=== PATIENT | male | born 1980 | race Caucasian/White ===

== ENCOUNTER 2024-10-08 08:05 | Outpatient (REF) | payer OTHER, SELFPAY ==
--- OUTSIDE RECORDS SUMMARY | 2024-10-08 08:10 | XMS_ITS | Patient Health Record ---
Author Organization [facility] Address [address] [place] [address] [address] [place] [address] Care Team Providers Care Platform Beater Name Role Phone ADONAY CARL Primary Care Provider Allergies Allergen (clinical drug ingredient) Drug/Non Drug Allergy documented on EMR Reaction Allergy Type Onset Date Status Bee Sting Unknown Allergy Active semaglutide Wegovy nausea and vomiting Drug Allergy Active Reason For Referral No Information Medications Medication SIG (Take, Route, Frequency, Duration) Notes Start Date End Date Status Zepbound 2.5 MG/0.5ML 2.5 mg Subcutaneou s weekly; Duration: 30 days 06/06/2024 Active Qsymia 7.5-46 MG 1 capsule Orally Onc e a day; Duration: 30 days 04/26/2023 Not-Takin g Qsymia 3.75-23 MG 1 capsule Orally Onc e a day; Duration: 14 days 04/26/2023 Not-Takin g Phentermine HCl 37.5 MG 1 capsule Orally Once a day; Duration: 30 days 07/05/2024 Active Naproxen Not-Taking Topamax 50 MG 1 tablet Orally twic e a day; Duration: 30 days 05/15/2023 Not-Takin g Lactulose 20 GM/30ML 15 mL as needed Ora lly Once a day; Duration: 30 days 01/04/2024 Active Polyethylene Glycol 3350 17 GM 1 packet mixed with 8 ounces of fluid Orally Once a day; Duration: 30 days 10/14/2022 Not-Taking Topiramate 25 MG 1 tablet Orally Twic e a day; Duration: 30 day(s) Not-Jordon ing Ondansetron HCl 4 MG 1 tablet Orally Onc e a day; Duration: 30 days 05/23/2022 Active Immunizations Vaccine Route Administration Date Status Comme nts COVID 19 Pfizer Unknown 07/03/2020 Administered COVID 19 Pfizer Unknown 07/23/2020 Administered Hep B, adult dosage, for intramuscular use Unknown 06/24/2011 Administered Tdap Unknown 06/20/2011 Administered Social History Tobacco Use: Social History Observation Description Date Details (start date - stop date) Never Smoker NA - NA Tobacco Use/Smoking Question Answer Notes Are you a nonsmoker Alcohol Screen (Audit-C) Question Answer Notes Did you have a drink contain ing alcohol in the past year? Yes How often did you have a dri nk containing alcohol in the past year? Monthly or less (1 point) How many drinks did you have on a typical day when you were drinking in the past year? 1 or 2 drinks (0 point) Points 1 Interpretation Negative Problems Problem Type SNOMED Code ICD Code Onset Dates Problem Status W/U Status Risk Notes Problem Morbid obesity (disorder) (007609425) Morbid (severe) obesity due to excess calories (E66.01) Active confirmed Problem Obesity due to excess calories (508635312) Other obesity due to excess calories (E66.09) Active confirmed Problem Constipation (15343410) Constipation, unspecified (K59.00) Active confirmed Problem Degeneration of thoracolumbar intervertebral disc (44195265) Other intervertebral disc degeneration, thoracolumbar region (M51.35) Active confirmed Vital Signs Heart Rate 80 /min 08/28/2024 Temperature 97.6 degrees Fahrenheit 08/28/2024 Blood pressure diastolic 74 mm Hg 08/28/2024 Oximetry 96 % 08/28/2024 Height 66 in 08/28/2024 Blood pressure systolic 130 mm Hg 08/28/2024 Weight 241.7 lbs 08/28/2024 BMI 39.01 kg/m2 08/28/2024 Encounters Encounter Location Date Provider Diagnosis [address] [place] [address] 10/17/2023 SIDDHARTHA URIAS Other obesity due to excess calories E66.09 and Dietary counseling and surveillance Z71.[address] [place] [address] 01/04/2024 CARL GUL Other obesity due to excess calories E66.09 ; Dietary counseling and surveillance Z71.3 and Constipation, unspecified K59.00 [facility] [address] [place] [address] 03/07/2024 CARL GUL Other obesity due to excess calories E66.09 and Dietary counseling and surveillance Z71.3 [facility] [address] [place] [address] 04/11/2024 CARL GUL Other obesity due to excess calories E66.09 and Dietary counseling and surveillance Z71.3 [facility] [address] [place] [address] 06/06/2024 CARL GUL Other obesity due to excess calories E66.09 and Dietary counseling and surveillance Z71.3 [facility] [address] [place] [address] 08/28/2024 CARL GUL Morbid (severe) obesity due to excess calories E66.01 and Dietary counseling and surveillance Z71.3 [facility] [address] [place] [address] 12/11/2023 [facility] [address] [place] [address] 12/18/2023 [facility] [address] [place] [address] 06/06/2024 CARL GUL Other obesity due to excess calories E66.09 [facility] [address] [place] [address] 07/05/2024 [facility] [address] [place] [address] 08/06/2024 CARL [facility] [address] [place] [address] 09/25/2024 [facility] [address] [place] [address] 10/04/2024 [facility] [address] [place] [address] 11/27/2023 [facility] [address] [place] [address] 12/28/2023 [facility] [address] [place] [address] 01/30/2024 [facility] [address] [place] [address] 01/30/2024 [facility] [address] [place] [address] 04/18/2024 [facility] [address] [place] [address] 06/26/2024 [facility] [address] [place] [address] 06/29/[address] [place] [address] 07/05/[address] [place] [address] 08/14/[address] [place] [address] 10/04/[address] [place] [address] 10/04/2024 [facility] Assessments Encounter Date Diagnosis (ICD Code) Assessment Notes Treatment Notes Treatment Clinical Notes Section Notes 10/17/2023 Other obesity due to excess calories (ICD-10 - E66.09) Melchor is a 43 year old gentleman with ADD and generalized anxiety disorder here for medical weight management. We saw him in August. He lost 49 lbs in total and 7.5 lbs since last time. He is not exercising because of sprained low back. Advised to consume not more than 1300 calories in 24 hours. Advised to get a food scale and measure portions. He is walking as much as he can and advised cardio exercises. Plan is as follows: Dietary recommendations. Food recall was done today and patient advised to be on low calorie, low carbohydrate diet. Restrict calories to less than 1500 kcal in 24 hours. Low glycemic index foods and encouraged. Meal replacements were recommended. Advised to use djkg-itm-tbgykhi multivitamins and vitamin D. Advised to use calorie counter and adhere to portion control. Monthly goal is to lose 4-6 pounds Pharmacotherapy. He is off Wegovy 2.4 MG/0.75ML at this point because he cannot tolerate side effects of nausea plan increase Phentermine 37.5 MG OD and Topamax 50 MG BID. Side effects discussed. Exercise. Patient encouraged to increase frequency, intensity and duration of exercise. Encouraged to burn at least 250-500 kcal in one session. Also encouraged to do weight training Assess. Different risk factors discussed with the patient and addressed Advise. Patient was given clear And specific advise that she will comply with Low-calorie diet and try not to exceed more than 1300 kcal in 24 hours. Agree. Mutually agreed to work together to achieve appropriate goals Assist. Motivational interviewing done. Arrange. Follow-up appointment arranged. Counseling. 15 minutes spent Face to face with the patient more than 50% of time was spent counseling. General health concerns discussed with patient. Scribe services used to formulate this note under HIPAA compliance and under [place] law mandated for scribe services. Patient aware of service. Verbal consent and written consent taken from the patient. Patient understands and verbalizes understanding of the scribes services and all questions answered regarding scribes services. Patient agrees to use of scribes services. 10/17/2023 Dietary counseling and surveillance (ICD-10 - Z71.3) Melchor is a 43 year old gentleman with ADD and generalized anxiety disorder here for medical weight management. We saw him in August. He lost 49 lbs in total and 7.5 lbs since last time. He is not exercising because of sprained low back. Advised to consume not more than 1300 calories in 24 hours. Advised to get a food scale and measure portions. He is walking as much as he can and advised cardio exercises. Plan is as follows: Dietary recommendations. Food recall was done today and patient advised to be on low calorie, low carbohydrate diet. Restrict calories to less than 1500 kcal in 24 hours. Low glycemic index foods and encouraged. Meal replacements were recommended. Advised to use xigb-rlc-tabgdzz multivitamins and vitamin D. Advised to use calorie counter and adhere to portion control. Monthly goal is to lose 4-6 pounds Pharmacotherapy. He is off Wegovy 2.4 MG/0.75ML at this point because he cannot tolerate side effects of nausea plan increase Phentermine 37.5 MG OD and Topamax 50 MG BID. Side effects discussed. Exercise. Patient encouraged to increase frequency, intensity and duration of exercise. Encouraged to burn at least 250-500 kcal in one session. Also encouraged to do weight training Assess. Different risk factors discussed with the patient and addressed Advise. Patient was given clear And specific advise that she will comply with Low-calorie diet and try not to exceed more than 1300 kcal in 24 hours. Agree. Mutually agreed to work together to achieve appropriate goals Assist. Motivational interviewing done. Arrange. Follow-up appointment arranged. Counseling. 15 minutes spent Face to face with the patient more than 50% of time was spent counseling. General health concerns discussed with patient. Scribe services used to formulate this note under HIPAA compliance and under [place] law mandated for scribe services. Patient aware of service. Verbal consent and written consent taken from the patient. Patient understands and verbalizes understanding of the scribes services and all questions answered regarding scribes services. Patient agrees to use of scribes services. 01/04/2024 Other obesity due to excess calories (ICD-10 - E66.09) Melchor is a 43 year old gentleman with ADD and generalized anxiety disorder here for medical weight management. We saw him in August. He lost 44 lbs in total and 6.3 lbs since last time. He is not exercising because of sprained low back. Advised to consume not more than 1300 calories in 24 hours. Advised to get a food scale and measure portions. He is walking as much as he can and advised cardio exercises. Plan is as follows: Dietary recommendations. Food recall was done today and patient advised to be on low calorie, low carbohydrate diet. Restrict calories to less than 1500 kcal in 24 hours. Low glycemic index foods and encouraged. Meal replacements were recommended. Advised to use dybs-cuf-lpsdevw multivitamins and vitamin D. Advised to use calorie counter and adhere to portion control. Monthly goal is to lose 4-6 pounds Pharmacotherapy. He is off Wegovy 2.4 MG/0.75ML at this point because he cannot tolerate side effects of nausea plan increase Phentermine 37.5 MG OD and Topamax 50 MG BID. Side effects discussed. Exercise. Patient encouraged to increase frequency, intensity and duration of exercise. Encouraged to burn at least 250-500 kcal in one session. Also encouraged to do weight training Assess. Different risk factors discussed with the patient and addressed Advise. Patient was given clear And specific advise that she will comply with Low-calorie diet and try not to exceed more than 1300 kcal in 24 hours. Agree. Mutually agreed to work together to achieve appropriate goals Assist. Motivational interviewing done. Arrange. Follow-up appointment arranged. Counseling. 15 minutes spent Face to face with the patient more than 50% of time was spent counseling. General health concerns discussed with patient. 01/04/2024 Dietary counseling and surveillance (ICD-10 - Z71.3) Melchor is a 43 year old gentleman with ADD and generalized anxiety disorder here for medical weight management. We saw him in August. He lost 44 lbs in total and 6.3 lbs since last time. He is not exercising because of sprained low back. Advised to consume not more than 1300 calories in 24 hours. Advised to get a food scale and measure portions. He is walking as much as he can and advised cardio exercises. Plan is as follows: Dietary recommendations. Food recall was done today and patient advised to be on low calorie, low carbohydrate diet. Restrict calories to less than 1500 kcal in 24 hours. Low glycemic index foods and encouraged. Meal replacements were recommended. Advised to use ffcr-zcu-yhhzpye multivitamins and vitamin D. Advised to use calorie counter and adhere to portion control. Monthly goal is to lose 4-6 pounds Pharmacotherapy. He is off Wegovy 2.4 MG/0.75ML at this point because he cannot tolerate side effects of nausea plan increase Phentermine 37.5 MG OD and Topamax 50 MG BID. Side effects discussed. Exercise. Patient encouraged to increase frequency, intensity and duration of exercise. Encouraged to burn at least 250-500 kcal in one session. Also encouraged to do weight training Assess. Different risk factors discussed with the patient and addressed Advise. Patient was given clear And specific advise that she will comply with Low-calorie diet and try not to exceed more than 1300 kcal in 24 hours. Agree. Mutually agreed to work together to achieve appropriate goals Assist. Motivational interviewing done. Arrange. Follow-up appointment arranged. Counseling. 15 minutes spent Face to face with the patient more than 50% of time was spent counseling. General health concerns discussed with patient. 03/07/2024 Other obesity due to excess calories (ICD-10 - E66.09) Melchor is a 43 year old gentleman with ADD and generalized anxiety disorder here for medical weight management. He lost 44 lbs in total andgained 14 pounds lbs since last time because of family issues and he has been noncompliant with low calorie diet and. He is not exercising.He was recently in the hospital for abdominal pain. Encouraged to comply with low calorie diet, regular exercise Dietary recommendations. Food recall was done today and patient advised to be on low calorie, low carbohydrate diet. Restrict calories to less than 1500 kcal in 24 hours. Low glycemic index foods and encouraged. Meal replacements were recommended. Advised to use rget-way-rqwbsdk multivitamins and vitamin D. Advised to use calorie counter and adhere to portion control. Monthly goal is to lose 4-6 pounds Pharmacotherapy. He is off Wegovy 2.4 MG/0.75ML at this point because he cannot tolerate side effects of nausea plan increase Phentermine 37.5 MG OD and Topamax 50 MG BID. Side effects discussed. Exercise. Patient encouraged to increase frequency, intensity and duration of exercise. Encouraged to burn at least 250-500 kcal in one session. Also encouraged to do weight training Assess. Different risk factors discussed with the patient and addressed Advise. Patient was given clear And specific advise that she will comply with Low-calorie diet and try not to exceed more than 1300 kcal in 24 hours. Agree. Mutually agreed to work together to achieve appropriate goals Assist. Motivational interviewing done. Arrange. Follow-up appointment arranged. Counseling. 15 minutes spent Face to face with the patient more than 50% of time was spent counseling. General health concerns discussed with patient. 03/07/2024 Dietary counseling and surveillance (ICD-10 - Z71.3) Melchor is a 43 year old gentleman with ADD and generalized anxiety disorder here for medical weight management. He lost 44 lbs in total andgained 14 pounds lbs since last time because of family issues and he has been noncompliant with low calorie diet and. He is not exercising.He was recently in the hospital for abdominal pain. Encouraged to comply with low calorie diet, regular exercise Dietary recommendations. Food recall was done today and patient advised to be on low calorie, low carbohydrate diet. Restrict calories to less than 1500 kcal in 24 hours. Low glycemic index foods and encouraged. Meal replacements were recommended. Advised to use kaet-krt-gmubsjs multivitamins and vitamin D. Advised to use calorie counter and adhere to portion control. Monthly goal is to lose 4-6 pounds Pharmacotherapy. He is off Wegovy 2.4 MG/0.75ML at this point because he cannot tolerate side effects of nausea plan increase Phentermine 37.5 MG OD and Topamax 50 MG BID. Side effects discussed. Exercise. Patient encouraged to increase frequency, intensity and duration of exercise. Encouraged to burn at least 250-500 kcal in one session. Also encouraged to do weight training Assess. Different risk factors discussed with the patient and addressed Advise. Patient was given clear And specific advise that she will comply with Low-calorie diet and try not to exceed more than 1300 kcal in 24 hours. Agree. Mutually agreed to work together to achieve appropriate goals Assist. Motivational interviewing done. Arrange. Follow-up appointment arranged. Counseling. 15 minutes spent Face to face with the patient more than 50% of time was spent counseling. General health concerns discussed with patient. 04/11/2024 Other obesity due to excess calories (ICD-10 - E66.09) Melchor is a 43 year old gentleman with ADD and generalized anxiety disorder here for medical weight management. He lost 44 lbs in total andgained 14 pounds lbs. He lost 3 pounds on our scale since last visit and 4 pounds on home scale. Dietary recommendations. Food recall was done today and patient advised to be on low calorie, low carbohydrate diet. Restrict calories to less than 1500 kcal in 24 hours. Low glycemic index foods and encouraged. Meal replacements were recommended. Advised to use halc-bnh-yrypkmc multivitamins and vitamin D. Advised to use calorie counter and adhere to portion control. Monthly goal is to lose 4-6 pounds Pharmacotherapy. He is off Wegovy 2.4 MG/0.75ML at this point because he cannot tolerate side effects of nausea plan increase Phentermine 37.5 MG OD and Topamax 50 MG BID. Side effects discussed. He is interested in Contrave and he will check with his insurance and let us know Exercise. Patient encouraged to increase frequency, intensity and duration of exercise. Encouraged to burn at least 250-500 kcal in one session. Also encouraged to do weight training Assess. Different risk factors discussed with the patient and addressed Advise. Patient was given clear And specific advise that she will comply with Low-calorie diet and try not to exceed more than 1300 kcal in 24 hours. Agree. Mutually agreed to work together to achieve appropriate goals Assist. Motivational interviewing done. Arrange. Follow-up appointment arranged. Counseling. 15 minutes spent Face to face with the patient more than 50% of time was spent counseling. General health concerns discussed with patient. 04/11/2024 Dietary counseling and surveillance (ICD-10 - Z71.3) Melchor is a 43 year old gentleman with ADD and generalized anxiety disorder here for medical weight management. He lost 44 lbs in total andgained 14 pounds lbs. He lost 3 pounds on our scale since last visit and 4 pounds on home scale. Dietary recommendations. Food recall was done today and patient advised to be on low calorie, low carbohydrate diet. Restrict calories to less than 1500 kcal in 24 hours. Low glycemic index foods and encouraged. Meal replacements were recommended. Advised to use xkuj-cky-raxylur multivitamins and vitamin D. Advised to use calorie counter and adhere to portion control. Monthly goal is to lose 4-6 pounds Pharmacotherapy. He is off Wegovy 2.4 MG/0.75ML at this point because he cannot tolerate side effects of nausea plan increase Phentermine 37.5 MG OD and Topamax 50 MG BID. Side effects discussed. He is interested in Contrave and he will check with his insurance and let us know Exercise. Patient encouraged to increase frequency, intensity and duration of exercise. Encouraged to burn at least 250-500 kcal in one session. Also encouraged to do weight training Assess. Different risk factors discussed with the patient and addressed Advise. Patient was given clear And specific advise that she will comply with Low-calorie diet and try not to exceed more than 1300 kcal in 24 hours. Agree. Mutually agreed to work together to achieve appropriate goals Assist. Motivational interviewing done. Arrange. Follow-up appointment arranged. Counseling. 15 minutes spent Face to face with the patient more than 50% of time was spent counseling. General health concerns discussed with patient. 06/06/2024 Other obesity due to excess calories (ICD-10 - E66.09) Melchor is a 43 year old gentleman with ADD and generalized anxiety disorder here for medical weight management. He lost 44 lbs in total andgained 14 pounds lbs. He lost 3 pounds on our scale since last visit and 4 pounds on home scale. Dietary recommendations. Food recall was done today and patient advised to be on low calorie, low carbohydrate diet. Restrict calories to less than 1500 kcal in 24 hours. Low glycemic index foods and encouraged. Meal replacements were recommended. Advised to use bpoc-voa-oebjikm multivitamins and vitamin D. Advised to use calorie counter and adhere to portion control. Monthly goal is to lose 4-6 pounds Pharmacotherapy. He is off Wegovy 2.4 MG/0.75ML at this point because he cannot tolerate side effects of nausea. He is on Phentermine 37.5 MG OD and Topamax 50 MG BID but he has plateaued and he is interested to try Zepbound. Prescription sent. Side effects discussed. Exercise. Patient encouraged to increase frequency, intensity and duration of exercise. Encouraged to burn at least 250-500 kcal in one session. Also encouraged to do weight training Assess. Different risk factors discussed with the patient and addressed Advise. Patient was given clear And specific advise that she will comply with Low-calorie diet and try not to exceed more than 1300 kcal in 24 hours. Agree. Mutually agreed to work together to achieve appropriate goals Assist. Motivational interviewing done. Arrange. Follow-up appointment arranged. Counseling. 15 minutes spent Face to face with the patient more than 50% of time was spent counseling. General health concerns discussed with patient. 06/06/2024 Dietary counseling and surveillance (ICD-10 - Z71.3) Melchor is a 43 year old gentleman with ADD and generalized anxiety disorder here for medical weight management. He lost 44 lbs in total andgained 14 pounds lbs. He lost 3 pounds on our scale since last visit and 4 pounds on home scale. Dietary recommendations. Food recall was done today and patient advised to be on low calorie, low carbohydrate diet. Restrict calories to less than 1500 kcal in 24 hours. Low glycemic index foods and encouraged. Meal replacements were recommended. Advised to use lvza-yfz-njcgrtj multivitamins and vitamin D. Advised to use calorie counter and adhere to portion control. Monthly goal is to lose 4-6 pounds Pharmacotherapy. He is off Wegovy 2.4 MG/0.75ML at this point because he cannot tolerate side effects of nausea. He is on Phentermine 37.5 MG OD and Topamax 50 MG BID but he has plateaued and he is interested to try Zepbound. Prescription sent. Side effects discussed. Exercise. Patient encouraged to increase frequency, intensity and duration of exercise. Encouraged to burn at least 250-500 kcal in one session. Also encouraged to do weight training Assess. Different risk factors discussed with the patient and addressed Advise. Patient was given clear And specific advise that she will comply with Low-calorie diet and try not to exceed more than 1300 kcal in 24 hours. Agree. Mutually agreed to work together to achieve appropriate goals Assist. Motivational interviewing done. Arrange. Follow-up appointment arranged. Counseling. 15 minutes spent Face to face with the patient more than 50% of time was spent counseling. General health concerns discussed with patient. 06/06/2024 Other obesity due to excess calories (ICD-10 - E66.09) 08/28/2024 Morbid (severe) obesity due to excess calories (ICD-10 - E66.01) Luis Daniel is 44 years old gentleman with multiple joint osteoarthritis/d egenerative changes is here today for weight management. He did not lose weight since last visit. He has been struggling with hand pain and had intra-facet injection and is waiting to MRI and EMG study. Plan is as follows Dietary recommendations. Food recall was done today and patient advised to be on low calorie, low carbohydrate diet. Restrict calories to less than 1500 kcal in 24 hours. Low glycemic index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
--- OUTSIDE RECORDS SUMMARY | 2024-10-08 08:10 | XMS_ITS | Clinical Summary ---
Author Organization [facility] [address] [place] [address] Address [address] [place] [address] Phone Care Team Providers Care Sludge Control Operator Name Role Phone Sushil Burrell Primary Care Provider +1 [phone] Allergies Active Allergy Reactions Criticality Noted Date Comments Bee Venom Protein (Honey Bee) Hives 2024 Medications Zepbound 2.5 mg/0.5 mL injection Inject 0.5 mL (2.5 mg total) under the skin every 7 (seven) days. 07/16/2024 Active topiramate (TOPAMAX) 25 mg tablet Take 1 tablet (25 mg total) by mouth 1 (one) time each day. 06/23/2017 Active aspirin-acetami nophen-caffeine (EXCEDRIN MIGRAINE) 250-250-65 mg per tablet Take 2 tablets by mouth every 6 (six) hours if needed for moderate pain or headaches. Active baclofen (LIORESAL) 10 mg tablet Take 1 tablet (10 mg total) by mouth 3 (three) times a day. 270 each 1 08/09/2024 Active ibuprofen (ADVIL,MOTRIN) 800 mg tablet Take 1 tablet (800 mg total) by mouth 3 (three) times a day if needed for mild pain (pain). 270 tablet 1 08/09/2024 Active Active Problems Problem Noted Date Diagnosed Date Migraines 09/19/2015 Encounters Date Type Department Care Team Description 09/17/2024 Telephone [facility] Medicine [address] [phone] Sushil Burrell, PA 08/30/2024 Telephone [facility] Medicine [address] [phone] Sushil Burrell PA 08/09/2024 10:23 AM EDT - 08/09/2024 11:59 PM EDT Hospital Encounter XR - [address] [phone] Lumbar radiculopathy Discharge Disposition: Home or Self Care 08/09/2024 10:00 AM EDT Office Visit [address] [phone] Micha Crenshaw MD Lumbar radiculopathy (Primary Dx) 08/08/2024 Telephone Adult Medicine [address] [phone] Sushil Burrell PA 07/29/2024 1:07 PM EDT - 07/29/2024 11:59 PM EDT Hospital Encounter [facility] [address] [phone] Right arm numbness; Numbness and tingling in right hand; Primary osteoarthritis of left knee; Acute pain of right shoulder Discharge Disposition: Home or Self Care 07/29/2024 1:00 PM EDT - 07/29/2024 11:59 PM EDT Hospital Encounter [address] [phone] Right arm numbness; Numbness and tingling in right hand; Primary osteoarthritis of left knee; Acute pain of right shoulder Discharge Disposition: Home or Self Care 07/29/2024 12:30 PM EDT Office Visit Adult [address] [phone] Sushil Burrell PA Right arm numbness (Primary Dx); Numbness and tingling in right hand; Primary osteoarthritis of left knee; Acute pain of right shoulder 07/22/2024 Telephone Adult Medicine [address] [phone] Suzan Her MA from Last 3 Months Surgical History Surgery Date Site/Laterality Comments OTHER SURGICAL HISTORY PROCEDURE: HISTORY OTHER; COMMENT: left knee surgery WISDOM TOOTH EXTRACTION PROCEDURE: HISTORICAL WISDOM TEETH EXTRACTION ANKLE SURGERY Left PROCEDURE: HISTORICAL ANKLE SURGERY; COMMENT: ankle fusion COLONOSCOPY 11/22/2023 PROCEDURE: HISTORICAL COLONOSCOPY; COMMENT: ozuna hemorrhoid 10 yrs Medical History Medical History Date Comments Obesity, unspecified 09/27/2005 DX:Obesity, unspecified Depression 09/19/2015 DX:Depression Migraines 09/19/2015 DX:Migraines Low back pain 09/19/2015 DX:Low back pain Family History Medical History Relation Name Comments Other: low back issues Father Other: trigeminal neuralgia Father Diabetes Uncle Relation Name Status Comments Father Alive Mother Alive multiple proble ms Sister Alive 1/2 brother Uncle Social History Tobacco Use Types Packs/Day Years Used Date Smoking Tobacco: Never Smokeless Tobacco: Never Tobacco Cessation:Counseling Given: Not Answered Alcohol Use Standard Drinks/Week Comments Not Currently 0 (1 standard drink = 0.6 oz pur e alcohol) Housing Instability Answer Date Recorde d Are you worried that in the next 2 months you may not have stable housing? No 07/29/2024 Food Access & Nutrition Answer Date Rec orded Do you have access to a vari ety of food including fruits and vegetables? Yes 07/29/2024 Health Literacy Answer Date Recorded How often do you need to hav e someone help you when you read instructions, pamphlets, or other written material from your doctor or pharmacy? Never 07/29/2024 Caregiver: How often do you need to have someone help you when you read instructions, pamphlets, or other written material from your doctor or pharmacy? Not on file 07/29/2024 Financial Risk Answer Date Recorded How hard is it for you to pa y for the very basics like food, housing, medical care, and air conditioning / heating? Not very hard 07/29/2024 Transportation Answer Date Recorded Has the lack of transportati on kept you from meetings, work, or from getting things needed for daily living? No Has the lack of transportati on kept you from medical appointments or from getting medications? No 07/29/2024 Social Isolation Answer Date Recorded How often do you feel lonely or isolated from th ose around you? Never 07/29/2024 Food Risk Answer Date Recorded Within the past 12 months we worried whether our food would run out before we got money to buy more. Never true 07/29/2024 Within the past 12 months th e food we bought just didn't last and we didn't have money to get more. Never true 07/29/2024 Dependent Care Answer Date Recorded Do you need help finding or paying for care for your loved ones. For example, children's ministry director or elderly care for an older adult? No 07/29/2024 Education Answer Date Recorded Do you think completing more education or training, like finishing a GED, going to college, or learning a trade, would be helpful for you? No 07/29/2024 Employment and Income Answer Date Recor ded During the last four weeks, have you been actively looking for work? No 07/29/2024 Living Situation Answer Date Recorded What is your living situation? 0 07/29/2024 Sex and Gender Information Value Date Recorded Sex Assigned at Not on file Legal Sex Male 4:15 AM EST Gender Identity Not on file Sexual Orientation Not on file Obstetrics History Last Filed Vital Signs Vital Sign Reading Time Taken Comments Blood Pressure 118/76 08/09/2024 9:49 AM EDT Pulse 70 08/09/2024 9:49 AM EDT Temperature 35.9 C (96.7 F) 07/29/2024 12:40 PM EDT Respiratory Rate 15 07/29/2024 12:40 PM EDT Oxygen Saturation - - Inhaled Oxygen Concentration - - Weight 111 kg (245 lb) 07/29/2024 12:40 PM EDT Height 172.7 cm (5' 8 ) 08/09/2024 9:49 AM EDT Body Mass Index 37.25 07/29/2024 12:40 PM EDT Plan of Treatment Health Maintenance Due Date Last Done Comments Hepatitis B Vaccines (2 of 3 - 19+ 3-dose series) 07/22/2011 06/24/2011 Colorectal Cancer Screening: Colonoscopy 01/16/2022 HIV Screening 01/16/2022 Hepatitis C Screening 01/16/2022 COVID-19 Vaccine (3 - 2023-2 5 season) 2023 07/23/2020, 07/03/2020 Depression Screening 02/14/2024 Influenza Vaccine (#1) 2024 Social Influencers of Health Screening 07/29/2025 07/29/2024 Cholesterol Screening (Lipid Panel) 06/17/2028 06/18/2023 DTaP,Tdap,and Td Vaccines (3 - Td or Tdap) 06/10/2032 06/10/2022, 06/20/2011 HIB Vaccines Aged Out No longer eligi ble based on patient's age to complete this topic HPV Vaccines Aged Out No longer eligi ble based on patient's age to complete this topic Hepatitis A Vaccines Aged Out No long er eligible based on patient's age to complete this topic IPV Vaccines Aged Out No longer eligi ble based on patient's age to complete this topic MMR Vaccines Aged Out No longer eligi ble based on patient's age to complete this topic Meningococcal ACWY Vaccine Aged Out N o longer eligible based on patient's age to complete this topic Meningococcal B Vaccine Aged Out No l onger eligible based on patient's age to complete this topic Pneumococcal Vaccine: Pediatrics (0 to 5 Years) and At-Risk Patients (6 to 49 Years) Aged Out No longer eligible b ased on patient's age to complete this topic RSV Immunization Patients Under 20 months Aged Out No longer eligible b ased on patient's age to complete this topic Varicella Vaccines Aged Out No longer eligible based on patient's age to complete this topic Procedures Procedure Name Priority Date/Time Associated Diagnosis Comments XR LUMBAR SPINE 4+ VIEWS Routine 08/09/2024 10:33 AM EDT Lumbar radiculopathy XR KNEE 4+ VIEWS LEFT Routine 07/29/2024 1:23 PM EDT Right arm numbness Numbness and tingling in right hand Primary osteoarthritis of left knee Acute pain of right shoulder XR SHOULDER 2+ VIEWS RIGHT Routine 07/29/2024 1:22 PM EDT Right arm numbness Numbness and tingling in right hand Primary osteoarthritis of left knee Acute pain of right shoulder from Last 3 Months Results * XR Lumbar Spine 4+ Views (08/09/2024 10:33 AM EDT) Anatomical Region Laterality Modality Spine, L-spine Radiographic Sadia ging 08/09/2024 2:08 PM EDT Impressions 08/09/2024 2:10 PM EDT No acute fracture or dislocation of the lumbar spine. -------- FINAL REPORT -------- Dictated By: Yan Mcwilliams Dictated Date: 08/09/2024 14:08 ET Assigned Physician: Yan Mcwilliams Reviewed and Electronically Signed By: Yan Mcwilliams Signed Date: 08/09/2024 14:10 ET Workstation ID: [id number] Transcribed By: Self Edit Transcribed Date: 08/09/2024 14:08 ET Narrative 08/09/2024 2:10 PM EDT HISTORY: acute low back pain TECHNIQUE: 4 views of the lumbar spine COMPARISON: Lumbar spine radiograph from 06/10/2022 FINDINGS: Vertebral body height is maintained. Decreased disc height at L1-L2 and L5-S1 with endplate sclerosis. No acute fracture or dislocation is seen. The spinal alignment is well maintained without evidence of spondylolisthesis. Mild facet arthropathy at the lower lumbar spine. The sacroiliac joints are unremarkable. Large amount stool throughout the colon. Procedure Note Yan Mcwilliams MD - 08/09/2024 HISTORY: acute low back pain TECHNIQUE: 4 views of the lumbar spine COMPARISON: Lumbar spine radiograph from 06/10/2022 FINDINGS: Vertebral body height is maintained. Decreased disc height at L1-L2 andL5-S1 with endplate sclerosis. No acute fracture or dislocation is seen.The spinal alignment is well maintained without evidence ofspondylolisthesis. Mild facet arthropathy at the lower lumbar spine. Thesacroiliac joints are unremarkable. Large amount stool throughout thecolon. IMPRESSION: No acute fracture or dislocation of the lumbar spine. -------- FINAL REPORT -------- Dictated By: Yan Mcwilliams Dictated Date: 08/09/2024 14:08 ET Assigned Physician: Yan Mcwilliams Reviewed and Electronically Signed By: Yan Mcwilliams Signed Date: 08/09/2024 14:10 ET Workstation ID: [id number] Transcribed By: Self Edit Transcribed Date: 08/09/2024 14:08 ET us Micha Crenshaw MD IMG XR PROCEDURES Layne l Result * XR Knee 4+ Views Left (07/29/2024 1:23 PM EDT) Anatomical Region Laterality Modality Lower Extremities, Knee Left Radiogra phic Imaging 07/30/2024 6:55 AM EDT Impressions 07/30/2024 7:09 AM EDT Very mild degenerative changes. Findings of CPPD. POS - [id number] -------- FINAL REPORT -------- Dictated By: Melody Xavier Dictated Date: 07/30/2024 06:55 ET Assigned Physician: Melody Xavier Reviewed and Electronically Signed By: Melody Xavier Signed Date: 07/30/2024 07:09 ET Workstation ID: [id number] Transcribed By: Self Edit Transcribed Date: 07/30/2024 06:55 ET Narrative 07/30/2024 7:09 AM EDT EXAM: Left knee x-ray HISTORY: Left knee pain. COMPARISON: None VIEWS: 4 views performed, AP view performed weightbearing. FINDINGS: Very mild joint space narrowing in the lateral compartment and patellofemoral joint with minimal spurring. No evidence of an acute fracture or malalignment. No destructive bone lesion. No significant joint effusion. Chondrocalcinosis of the medial and lateral menisci and calcifications of the posterior femoral hyaline cartilage and in the region of the synovial lining of the suprapatellar recess. These findings are seen with CPPD. Procedure Note Melody Xavier MD - 07/30/2024 EXAM: Left knee x-ray HISTORY: Left knee pain. COMPARISON: None VIEWS: 4 views performed, AP view performed weightbearing. FINDINGS: Very mild joint space narrowing in the lateral compartment andpatellofemoral joint with minimal spurring. No evidence of an acutefracture or malalignment. No destructive bone lesion. No significantjoint effusion. Chondrocalcinosis of the medial and lateral menisci andcalcifications of the posterior femoral hyaline cartilage and in theregion of the synovial lining of the suprapatellar recess. These findingsare seen with CPPD. IMPRESSION: Very mild degenerative changes. Findings of CPPD. POS - [id number] -------- FINAL REPORT -------- Dictated By: Melody Xavier Dictated Date: 07/30/2024 06:55 ET Assigned Physician: Melody Xavier Reviewed and Electronically Signed By: Melody Xavier Signed Date: 07/30/2024 07:09 ET Workstation ID: [id number] Transcribed By: Self Edit Transcribed Date: 07/30/2024 06:55 ET Sushil ROBERT IMG XR PROCEDURES Final R esult * XR Shoulder 2+ Views Right (07/29/2024 1:22 PM EDT) Anatomical Region Laterality Modality Upper Extremities, Shoulder Right Radi ographic Imaging 07/30/2024 6:50 AM EDT Impressions 07/30/2024 6:55 AM EDT Mild degenerative changes at the acromioclavicular joint. Calcific tendinopathy. POS - [id number] -------- FINAL REPORT -------- Dictated By: Melody Xavier Dictated Date: 07/30/2024 06:50 ET Assigned Physician: Melody Xavier Reviewed and Electronically Signed By: Melody Xavier Signed Date: 07/30/2024 06:55 ET Workstation ID: [id number] Transcribed By: Self Edit Transcribed Date: 07/30/2024 06:50 ET Narrative 07/30/2024 6:55 AM EDT EXAM: Right shoulder x-ray HISTORY: Right shoulder pain. COMPARISON: None FINDINGS: 4 views performed. Mild degenerative changes at the acromioclavicular joint. No appreciable degenerative changes at the glenohumeral joint. No evidence of an acute fracture or dislocation. No destructive bone lesion. Very small soft tissue calcifications adjacent to the lateral humeral head as seen with calcific tendinopathy. Procedure Note Melody Xavier MD - 07/30/2024 EXAM: Right shoulder x-ray HISTORY: Right shoulder pain. COMPARISON: None FINDINGS: 4 views performed. Mild degenerative changes at the acromioclavicular joint. No appreciabledegenerative changes at the glenohumeral joint. No evidence of an acutefracture or dislocation. No destructive bone lesion. Very small softtissue calcifications adjacent to the lateral humeral head as seen withcalcific tendinopathy. IMPRESSION: Mild degenerative changes at the acromioclavicular joint. Calcifictendinopathy. POS - [id number] -------- FINAL REPORT -------- Dictated By: Melody Xavier Dictated Date: 07/30/2024 06:50 ET Assigned Physician: Melody Xavier Reviewed and Electronically Signed By: Melody Xavier Signed Date: 07/30/2024 06:55 ET Workstation ID: [id number] Transcribed By: Self Edit Transcribed Date: 07/30/2024 06:50 ET Sushil ROBERT IMG XR PROCEDURES Final R esult from Last 3 Months Insurance [facility] Care Teams Sludge Control Operator Relationship Specialty Start Date End Date Sushil Burrell PA [address] [place] [address] PCP - General Internal Medicine 07/22/24
--- OUTSIDE RECORDS SUMMARY | 2024-10-08 08:10 | XMS_ITS | Clinical Summary ---
Author Organization [facility] Address [address] [place] [address] Care Team Providers Care Artificial Marble Worker Name Role Phone Aiden Russell MD Primary Care Provider +1- [phone] Allergies Active Allergy Reactions Criticality Noted Date Comments Bee Sting 10/11/2017 Medications No known medications Social History Tobacco Use Types Packs/Day Years Used Date Smoking Tobacco: Never Smokeless Tobacco: Never Alcohol Use Standard Drinks/Week Comments No 0 (1 standard drink = 0.6 oz pur e alcohol) Sex and Gender Information Value Date Recorded Sex Assigned at Not on file Gender Identity Not on file Sexual Orientation Not on file Job Start Date Occupation Industry Not on file Not on file Not on file Last Filed Vital Signs Vital Sign Reading Time Taken Comments Blood Pressure 132/84 10/11/2017 7:25 AM EDT Pulse 74 10/11/2017 7:25 AM EDT Temperature 36.7 C (98 F) 10/11/2017 7:25 AM EDT Respiratory Rate 18 10/11/2017 7:25 AM EDT Oxygen Saturation 98% 10/11/2017 7:25 AM EDT Inhaled Oxygen Concentration - - Weight 120.7 kg (266 lb) 10/11/2017 7:25 AM EDT Height 172.7 cm (5' 8 ) 10/11/2017 7:25 AM EDT Body Mass Index 40.45 10/11/2017 7:25 AM EDT Plan of Treatment Not on file Care Teams Artificial Marble Worker Relationship Specialty Start Date End Date Aiden Russell MD [address] [place] [address] PCP - General Anesthesiology 10/11/17
--- OUTSIDE RECORDS SUMMARY | 2024-10-08 08:10 | XMS_ITS | Clinical Summary ---
Author Organization [facility] Address [address] [place] [address] Care Team Providers [employer]cher Name Role Phone Unavailable Primary Care Provider Unavailabl e Social History Tobacco Use Types Packs/Day Years Used Date Smoking Tobacco: Never Assessed Sex and Gender Information Value Date Recorded Sex Assigned at Not on file Legal Sex Male 9:10 AM EDT Gender Identity Not on file Sexual Orientation Not on file Plan of Treatment Health Maintenance Due Date Last Done Comments Hepatitis C Screening 1980 DTaP/Tdap/Td (1 - Tdap) 1996 Hep B (1 of 3 - 19+ 3-dose series) 1997 COVID-19 Vaccine (2023-2 5 season) 2023 Influenza (#1) 2024 Zoster (Shingrix) (1 of 2) 2028 HPV Vaccine (No Doses Required) Completed Hep A Aged Out No longer eligi ble based on patient's age to complete this topic Hib Aged Out No longer eligi ble based on patient's age to complete this topic Meningococcal ACWY Aged Out No longer eligible based on patient's age to complete this topic Pneumococcal Aged Out No longer eligi ble based on patient's age to complete this topic
--- NOTE | 2024-10-08 08:27 | EMG_ITS ---
Patient Complaints: Paresthesia right upper extremity, Rule out radiculopathy Procedure done: EMG / NCV of Right upper extremity Right median and ulnar motor and sensory studies were performed right radial sensory study and median and lateral antecubital brachial sensory study was performed an EMG needle examination was performed. Impression: [id number] right median neuropathy across carpal tunnel MTDD
== END 2024-10-08 08:06 | disposition home or self-care (01) ==
LOC: HO.NEURO 08:05
PROVIDERS: PCP Physician Assistant Medical; Visit Provider Physical Medicine & Rehabilitation
DX: G56.01 Carpal tunnel syndrome, right upper limb (principal)
CPT/HCPCS: 95886; 95910

== ENCOUNTER → 2024-10-08 08:27 | Outpatient (BNV) | payer OTHER, SELFPAY | PROVIDERS: PCP Physician Assistant Medical; Visit Provider Psychiatry & Neurology Neurology | DX: G56.01 Carpal tunnel syndrome, right upper limb (principal) | CPT/HCPCS: 95886; 95910 ==